=== PATIENT | male | born 1990 | race Caucasian/White ===

== ENCOUNTER 2019-08-04 14:19 | Emergency (ER) | payer OTHER, SELFPAY ==
[2019-08-04 14:35] VITALS: BP 116/75; PULSE 79; RESP 16; TEMP 36.8; O2SAT 98
--- NOTE | 2019-08-04 15:39 | ED.URI ---
HPI - URI/Sore Throat General Chief Complaint: Upper Respiratory Infection Stated Complaint: Cold/Flu Time Seen by Provider: 08/04/19 15:39 Source: patient and RN notes reviewed Mode of arrival: ambulatory Limitations: no limitations History of Present Illness HPI Narrative: 29 year old male who presents to express care with complaints of sore throat, body aches, nasal congestion with drainage, frontal headache for the past 2-3 days. Patient states that he has had clear thin nasal drainage, his cough is dry and non productive, states throat is painful especially to swallow rates it a 3/10 and states generalized body aches at 3/10. 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 EYES: Denies visual changes, redness, or discharge. ENT: positive rhinorrhea, congestion, sore throat, no otalgia. CARDIOVASCULAR: Denies chest pain, palpitations, or edema. RESPIRATORY: positive cough denies dyspnea. GASTROINTESTINAL: Denies abdominal pain, nausea, vomiting, or diarrhea. GENITOURINARY: Denies dysuria or hematuria. SKIN: Denies rash or itching. MUSCULOSKELETAL: Denies back pain, joint pain, or myalgia. NEUROLOGIC: positive frontal headache,no numbness, or weakness. PSYCHIATRIC: Denies anxiety or depression. All systems reviewed & are unremarkable except as noted in HPI and below PMFSH Past Medical History Medical History (Updated 08/04/19 @ 16:46 by Stacey Augustin NP) Kidney stone Surgical History Surgical History (Updated 08/04/19 @ 16:46 by Stacey Augustin NP) Hx of inguinal hernia surgery Social History Social History (Updated 08/04/19 @ 17:02 by Stacey Augustin NP) Smoking status: Never smoker Occupation/Education: occupation Additional occupation/education comments: teacher Gender identity (if verbalized by the patient): Male Comments At time of signature, agree with nursing past medical, social history. There is no relevant family history pertinent to the presenting complaint Exam Narrative: Exam Narrative: GENERAL: Well-appearing, well-nourished, and in no acute distress. HEAD: Normocephalic, atraumatic. EYES: PERRLA and EOMI. ENT: Nares red, clear rhinorrhea no epistaxis. Mucous membranes moist.TM's normal with good light reflex, throat red with no lesions but swelling of tonsils noted. NECK: Supple. lymphadenopathy CHEST: Clear to auscultation. No respiratory distress.cough dry,SAO2 98% on room air. HEART: Regular rate and rhythm. No murmur heard. Normal peripheral pulses. ABDOMEN: Soft, nontender, nondistended, normal active bowel sounds. EXTREMITIES: Normal range of motion. No edema. SKIN: Warm, dry, no rash. NEURO: No focal deficits. Alert and oriented x3. Course Vital Signs Vital signs: Vital Signs Temperature 36.8 C 08/04/19 14:35 Pulse Rate 79 08/04/19 14:35 Respiratory Rate 16 08/04/19 14:35 Blood Pressure 116/75 08/04/19 14:35 Pulse Oximetry 98 08/04/19 14:35 Temperature 36.8 C 08/04/19 14:35 Pulse Rate 79 08/04/19 14:35 Respiratory Rate 16 08/04/19 14:35 Blood Pressure 116/75 08/04/19 14:35 Pulse Oximetry 98 08/04/19 14:35
== END 2019-08-04 15:59 | disposition home or self-care (01) ==
PROVIDERS: Emergency Provider Registered Nurse
DX: J03.90 Acute tonsillitis, unspecified (principal); J06.9 Acute upper respiratory infection, unspecified
CPT/HCPCS: 87081; 87804; 87880; 99203; G0463